=== PATIENT | male | born 2000 | race Caucasian/White ===

== ENCOUNTER 2022-05-08 11:30 | Emergency (ER) | payer BC, SELFPAY ==
[2022-05-08] MEDS ORDERED: NA CHLORIDE 0.9% 1,000 ML ONE (12:11)
[2022-05-08] MEDS ORDERED: ONDANSETRON 4 MG/2 ML VIAL ONE (12:12)
--- NOTE | 2022-05-08 12:19 | RAD REPORT ---
EXAM DESCRIPTION: CT - CTHCSPWOC - 05/08/2022 12:08 pm CLINICAL HISTORY: Trauma, head and neck injury. syncope, head injury, neck pain COMPARISON: No comparisons TECHNIQUE: Axial 5 mm thick images of the head were obtained. Axial 2 mm thick images of the cervical spine were obtained with sagittal and coronal reconstruction images generated and reviewed. All CT scans are performed using dose optimization technique as appropriate and may include automated exposure control or mA/KV adjustment according to patient size. FINDINGS: CT HEAD WITHOUT CONTRAST: No acute hemorrhage, hydrocephalus or extra-axial collection is identified.No areas of brain edema or midline shift. Jeremy cisterna magna. The paranasal sinuses and mastoids are clear.The calvarium is intact. CT CERVICAL SPINE WITHOUT CONTRAST: No fracture or subluxation.No prevertebral soft tissues swelling is identified. IMPRESSION: No acute intracranial or cervical spine findings.
[2022-05-08 12:37] LABS: Absolute Lymphocytes (CBC) 1.4 K/uL (0.7-4.9); Hematocrit 42.1 % (39.6-49.0); Lymphocytes % 15.5 % (15.3-44.8); MPV 7.1 fL (7.6-11.3); RBC Red Blood Cell Count 4.84 M/uL (4.33-5.43)
[2022-05-08 12:43] LABS: Protime INR 1.18
[2022-05-08 12:58] LABS: Albumin 3.9 g/dL (3.4-5.0); Bilirubin Direct 0.2 mg/dL (0-0.2); Magnesium 1.9 mg/dL (1.6-2.4); Potassium 3.4 mmol/L (3.5-5.1); Protein, Total 6.9 g/dL (6.4-8.2); Troponin High Sensitivity 3.6 pg/mL (<58.9)
[2022-05-08 13:17] LABS: SARS-COV-2 RT PCR NEGATIVE (NEGATIVE)
--- NOTE | 2022-05-08 13:39 | RAD REPORT ---
EXAM DESCRIPTION: RAD - Chest Single View - 05/08/2022 1:27 pm CLINICAL HISTORY: syncope Chest pain. COMPARISON: No comparisons FINDINGS: Portable technique limits examination quality. The lungs are grossly clear. The heart is normal in size. No displaced fractures. IMPRESSION: No acute intrathoracic process suspected.
[2022-05-08] MEDS ORDERED: IBUPROFEN 400 MG TAB ONE (13:48)
--- NOTE | 2022-05-08 14:51 | EDPHYS ---
Physician Documentation [facility] Name: Camila Lion Age: 21 yrs Sex: Male : 2000 Arrival Date: 05/08/2022 Time: 11:31 Bed 16 Private MD: ED Physician William Samayoa HPI: 05/08 11:33 This 21 yrs old Male presents to ER via Unassigned with complaints of syncope, head rn injury. 11:33 The patient has experienced syncope. Onset: The symptoms/episode began/occurred just rn prior to arrival. Duration: This was a single episode. Associated injury: Head/face:. Associated signs and symptoms: Pertinent positives: lightheadedness, Pertinent negatives: abdominal pain, chest pain, confusion, seizure, shortness of breath, vertigo, vomiting. Current symptoms: headache. The patient has not experienced similar symptoms in the past. The patient has not recently seen a physician. Pt at school, felt fine this AM, got up and felt lightheaded, went to door to get fresh air, passed out, witnessed, no seizure activity, + laceration to scalp, reports mild headache and neck pain. NO chest pain/sob/abd pain. First syncope. No famhx of early cardiac problems. No medication. No supplements. Did not eat breakfast this AM. Mother reports brother diagnosed with type 1 diabetes in teens.. Historical: - Allergies: 11:34 No Known Allergies; mb9 - Home Meds: 11:34 None [Active]; mb9 - PMHx: 11:34 None; mb9 - PSHx: 11:34 None; mb9 - Immunization history:: Adult Immunizations up to date. - Social history:: Smoking status: Patient denies any tobacco usage or history of. - Family history:: not pertinent. - Hospitalizations: : No recent hospitalization is reported. ROS: 11:33 Constitutional: Negative for fever, chills, and weight loss, Eyes: Negative for injury, rn pain, redness, and discharge, ENT: Negative for injury, pain, and discharge, Neck: + neck pain Cardiovascular: Negative for chest pain, palpitations, and edema, Respiratory: Negative for shortness of breath, cough, wheezing, and pleuritic chest pain, Abdomen/GI: Negative for abdominal pain, vomiting, diarrhea, and constipation, Back: Negative for injury and pain, MS/Extremity: Negative for injury and deformity, Skin: + laceration to scalp Neuro: Negative for numbness, tingling, and seizure. Exam: 11:33 Constitutional: This is a well developed, well nourished patient who is awake, alert, rn and in no acute distress. Head/Face: Normocephalic, small laceration occiput scalp, no active bleeding Eyes: Pupils equal round and reactive to light, extra-ocular motions intact. Lids and lashes normal. Conjunctiva and sclera are non-icteric and not injected. Cornea within normal limits. Periorbital areas with no swelling, redness, or edema. ENT: no oral trauma Neck: In ccollar, no midline tenderness, no crepitus Chest/axilla: Normal chest wall appearance and motion. Nontender with no deformity. No lesions are appreciated. Cardiovascular: Regular rate and rhythm. No pulse deficits. NO murmur. Respiratory: No increased work of breathing, no retractions or nasal flaring. Abdomen/GI: soft, non-tender Skin: Warm, dry MS/ Extremity: Pulses equal, no cyanosis. Neuro: Awake and alert, GCS 15, oriented to person, place, time, and situation. Cranial nerves II-XII grossly intact. Motor strength 5/5 in all extremities. Sensory grossly intact. Vital Signs: 11:31 BP 117 / 69; Pulse 98; Resp 18; Temp 97.3; Pulse Ox 97% on R/A; Weight 72.57 kg; Height mb9 6 ft. 1 in. (185.42 cm); Pain 4/10; 12:18 BP 123 / 82; Pulse 63; Resp 13; Pulse Ox 100% on R/A; Pain 3/10; mb9 12:58 BP 125 / 78; Pulse 62; Resp 14; Pulse Ox 100% on R/A; mb9 13:50 BP 127 / 71; Pulse 103; Resp 16; Pulse Ox 100% on R/A; mb9 15:16 BP 132 / 87; Pulse 88; Resp 18; Pulse Ox 100% ; mb9 11:31 Body Mass Index 21.11 (72.57 kg, 185.42 cm) mb9 Delmer Coma Score: 11:31 Eye Response: spontaneous(4). Verbal Response: oriented(5). Motor Response: obeys mb9 commands(6). Total: 15. 12:18 Eye Response: spontaneous(4). Verbal Response: oriented(5). Motor Response: obeys mb9 commands(6). Total: 15. 12:58 Eye Response: spontaneous(4). Verbal Response: oriented(5). Motor Response: obeys mb9 commands(6). Total: 15. 13:50 Eye Response: spontaneous(4). Verbal Response: oriented(5). Motor Response: obeys mb9 commands(6). Total: 15. 15:16 Eye Response: spontaneous(4). Verbal Response: oriented(5). Motor Response: obeys mb9 commands(6). Total: 15. Trauma Score (Adult): 11:31 Eye Response: spontaneous(1); Verbal Response: oriented(1); Motor Response: obeys mb9 commands(2); Systolic BP: > 89 mm Hg(4); Respiratory Rate: 10 to 29 per min(4); Delmer Score: 15; Trauma Score: 12 Laceration: 14:48 Wound Repair of 1cm ( 0.4in ) subcutaneous laceration to scalp. Distal rn neuro/vascular/tendon intact. Wound prep: Extensive cleansing by nurse, Wound explored. Skin closed with 1 35W Prolene using staple gun. Patient tolerated well. MDM: 11:31 Patient medically screened. rn 14:48 Differential Diagnosis: cardiac arrhythmia, emotional response, idiopathic syncope, rn vasovagal episode. Data reviewed: vital signs, nurses notes, lab test result(s), EKG, radiologic studies, CT scan, plain films, and as a result, I will discharge patient. Counseling: I had a detailed discussion with the patient and/or guardian regarding: the historical points, exam findings, and any diagnostic results supporting the discharge/admit diagnosis, lab results, radiology results, the need for outpatient follow up, to return to the emergency department if symptoms worsen or persist or if there are any questions or concerns that arise at home. Response to treatment: the patient's symptoms have markedly improved after treatment, the patient's condition has returned to base line, the patient is now symptom free, and as a result, I will discharge patient. Special discussion: Based on the patient's history, exam and DX evaluation, there is no indication for emergent intervention or inpatient TX. It is understood by the patient/guardian that if the SXs persist or worsen they need to return immediately for re-evaluation. I discussed with the patient/guardian in detail that at this point there is no indication for admission to the hospital. It is understood, however, that if the symptoms persist or worsen the patient needs to return immediately for re-evaluation. Based on the history and exam findings, there is no indication for further emergent testing or inpatient evaluation. I discussed with the patient/guardian the need to see the primary care provider for further evaluation of the symptoms. 05/08 11:32 Order name: Basic Metabolic Panel rn 05/08 11:32 Order name: CBC with Diff rn 05/08 11:32 Order name: Hepatic Function rn 05/08 11:32 Order name: Magnesium rn 05/08 11:32 Order name: Protime (+inr) rn 05/08 11:32 Order name: Ptt, Activated rn 05/08 11:32 Order name: Troponin High Sensitivity rn 05/08 11:32 Order name: COVID-19/FLU A+B rn 05/08 11:54 Order name: Glucose, Ancillary Testing; Complete Time: 12:22 EDWA 05/08 12:38 Order name: CBC with Automated Diff; Complete Time: 14:06 EDMS 05/08 12:43 Order name: Protime (+INR); Complete Time: 14:06 EDMS 05/08 12:43 Order name: PTT, Activated Partial Thromb; Complete Time: 14:06 EDMS 05/08 12:59 Order name: Basic Metabolic Panel; Complete Time: 14:06 EDMS 05/08 12:59 Order name: Liver (Hepatic) Function; Complete Time: 14:06 EDWA 05/08 11:32 Order name: CT Head C Spine rn 05/08 11:32 Order name: Chest Single View XRAY rn 05/08 11:32 Order name: EKG; Complete Time: 11:33 rn 05/08 11:32 Order name: Cardiac monitoring; Complete Time: 11:35 rn 05/08 11:32 Order name: EKG - Nurse/Tech; Complete Time: 12:15 rn 05/08 11:32 Order name: IV Saline Lock; Complete Time: 11:35 rn 05/08 11:32 Order name: Labs collected and sent; Complete Time: 11:35 rn 05/08 11:32 Order name: NPO; Complete Time: 11:35 rn 05/08 12:20 Order name: CT; Complete Time: 12:22 EDMS 05/08 12:59 Order name: Troponin High Sensitivity; Complete Time: 14:06 EDMS 05/08 12:59 Order name: Magnesium; Complete Time: 14:06 EDMS 05/08 13:17 Order name: COVID-19/FLU A+B; Complete Time: 14:06 EDMS 05/08 13:39 Order name: RAD; Complete Time: 14:06 EDMS 05/08 11:32 Order name: O2 Per Protocol; Complete Time: 11:35 rn 05/08 11:32 Order name: O2 Sat Monitoring; Complete Time: 11:35 rn 05/08 11:32 Order name: Glucose Level; Complete Time: 12:03 rn Administered Medications: 12:13 Drug: Zofran (Ondansetron) 4 mg Route: IVP; Site: left antecubital; mb9 13:31 Follow up: Response: No adverse reaction mb9 12:15 Drug: NS 0.9% 1000 ml Route: IV; Rate: 1000 ml; Site: left antecubital; mb9 13:49 Drug: Motrin (ibuprofen) 800 mg Route: PO; mb9 Disposition Summary: 05/08/22 14:50 Discharge Ordered Location: Home rn Problem: new rn Symptoms: have improved rn Condition: Stable rn Diagnosis - Syncope rn - Unspecified injury of head, initial encounter rn Followup: rn - With: Private Physician - When: 10 days - Reason: Recheck today's complaints, Staple/Suture removal, Re-evaluation by your physician Discharge Instructions: - Discharge Summary Sheet rn - Head Injury, Adult rn - Laceration Care, Adult rn Forms: - Medication Reconciliation Form rn - Thank You Letter rn - Antibiotic rn pool - Prescription Opioid Use rn - School release form [id number] Prescriptions: - Cephalexin 500 mg Oral Capsule - take 1 capsule by ORAL route every 12 hours for 10 days; 20 capsule; Refills: rn 0, Product Selection Permitted Signatures: Dispatcher [employer] William Salmeron MD MD rn Breneman, Mary Beth RN RN mb9 Corrections: (The following items were deleted from the chart) 14:07 11:33 Constitutional: This is a well developed, well nourished patient who is awake, rn alert, and in no acute distress. Head/Face: Normocephalic, small laceration occiput scalp, no active bleeding Eyes: Pupils equal round and reactive to light, extra-ocular motions intact. Lids and lashes normal. Conjunctiva and sclera are non-icteric and not injected. Cornea within normal limits. Periorbital areas with no swelling, redness, or edema. ENT: no oral trauma Neck: In ccollar, no midline tenderness, no crepitus Chest/axilla: Normal chest wall appearance and motion. Nontender with no deformity. No lesions are appreciated. Cardiovascular: Regular rate and rhythm. No pulse deficits. Respiratory: No increased work of breathing, no retractions or nasal flaring. Abdomen/GI: soft, non-tender Skin: Warm, dry MS/ Extremity: Pulses equal, no cyanosis. Neuro: Awake and alert, GCS 15, oriented to person, place, time, and situation. Cranial nerves II-XII grossly intact. Motor strength 5/5 in all extremities. Sensory grossly intact. rn
--- NOTE | 2022-05-08 14:51 | ER ---
Nurse's Notes [facility] Name: Camila Lion Age: 21 yrs Sex: Male : 2000 Arrival Date: 05/08/2022 Time: 11:31 Bed 16 Private MD: Diagnosis: Syncope;Unspecified injury of head, initial encounter Presentation: 05/08 11:31 Chief complaint: EMS states: "pt was at school and began getting hot flashes, he went mb9 to step outside to get air and has a syncope episode. Pt hit back of head on concrete and witnesses say he lost consciousness for 1 minute. Pt complaining of neck and head pain". Coronavirus screen: Vaccine status: Patient reports receiving the 2nd dose of the covid vaccine. Ebola Screen: No symptoms or risks identified at this time. Initial Sepsis Screen: Does the patient meet any 2 criteria? No. Patient's initial sepsis screen is negative. Does the patient have a suspected source of infection? No. Patient's initial sepsis screen is negative. Risk Assessment: Do you want to hurt yourself or someone else? Patient reports no desire to harm self or others. Onset of symptoms was May 08, 2022. 11:31 Acuity: GLENN 2 mb9 11:31 Method Of Arrival: EMS: [facility] mb9 Historical: - Allergies: 11:34 No Known Allergies; mb9 - Home Meds: 11:34 None [Active]; mb9 - PMHx: 11:34 None; mb9 - PSHx: 11:34 None; mb9 - Immunization history:: Adult Immunizations up to date. - Social history:: Smoking status: Patient denies any tobacco usage or history of. - Family history:: not pertinent. - Hospitalizations: : No recent hospitalization is reported. Screenin:[facility] ED Fall Risk Assessment (Adult) History of falling in the last 3 months, mb9 including since admission Yes- physiologic fall (2 pts) Confusion or Disorientation No (0 pts) Intoxicated or Sedated No (0 pts) Impaired Gait No (0 pts) Mobility Assist Device Used No (0 pt) Altered Elimination No (0 pt) Score/Fall Risk Level 0 - 2 = Low Risk Oriented to surroundings, Maintained a safe environment, Educated pt \\T\\ family on fall prevention, incl call for assistance when getting out of bed. Abuse screen: Denies threats or abuse. Nutritional screening: No deficits noted. Tuberculosis screening: No symptoms or risk factors identified. Primary Survey: 11:31 NO uncontrolled hemorrhage observed. A: The client is awake and alert. The airway is mb9 patent. The client is alert. Airway: patent, Trachea midline. 11:31 Breathing/Chest: Spontaneous respiratory effort, equal unlabored respirations, breath mb9 sounds clear bilaterally, regular pattern, symmetrical chest rise and fall. Respiratory effort: unlabored, Breath sounds: clear, bilaterally. Respiratory pattern: regular, Chest inspection: symmetrical rise and fall of the chest. Circulation: No external hemorrhage present. Regular and strong central pulse, skin warm/dry/normal color. Pulses: palpable right radial artery, right posterior tibial artery, right dorsalis pedis artery, left radial artery, left posterior tibial artery and left dorsalis pedis artery. Skin color: pale, Skin temperature: cool, Cardiac rhythm: sinus rhythm Heart tones present. Disability Pupils are equal, round, reactive to light and accommodation. Client is alert. Exposure/Environment: All clothing and personal items were removed. There is no evidence of uncontrolled external bleeding. Obvious injury(ies) are noted at this time: Laceration to posterior head. 12:17 Reassessment Alertness and Airway: Awake and alert. The airway is patent. Airway Patent mb9 Trachea Midline Breathing: Spontaneous respiratory effort, equal unlabored respirations, breath sounds clear bilaterally, regular pattern with symmetrical chest rise and fall. Respiratory effort Spontaneous Unlabored Breath sounds Clear Respiratory pattern Regular Circulation: No external hemorrhage noted. Regular and strong central pulse, skin warm/dry/normal color. Heart rhythm Sinus rhythm Heart tones Present Pulses Palpable Color Pale Temperature Cool Disability: Pupils Pupils are equal, round, reactive to light and accomodation. Alert. Secondary Survey: 11:31 HEENT:. Gastrointestinal: Abdomen is soft, flat, Bowel sounds present in all quadrants. mb9 Palpation Patient reports nausea. : No signs and/or symptoms were reported regarding the genitourinary system. Musculoskeletal: Range of motion: intact in all extremities. Injury Description: Laceration sustained to posterior right scalp is clean, 0.5 to 2.5 cm long, not bleeding. Assessment: 11:31 Reassessment: C-Collar and backboard in place via EMS. mb9 11:45 Reassessment: pt taken to CT via stretcher. mb9 12:10 Reassessment: pt vomiting in CT. VO from Dr. Samayoa for 4mg Zofran. mb9 12:45 Reassessment: No changes from previously documented assessment. Patient and/or family mb9 updated on plan of care and expected duration. Pain level reassessed. General: Appears uncomfortable, Behavior is calm, cooperative. Pain: Complains of pain in head Pain currently is 6 out of 10 on a pain scale. Quality of pain is described as aching, throbbing. Neuro: Cortez Agitation-Sedation Scale (RASS): 0 - Alert and Calm Level of Consciousness is awake, alert, obeys commands, Oriented to person, place, time, situation, Appropriate for age. EENT: No signs and/or symptoms were reported regarding the EENT system. Cardiovascular: Rhythm is regular. Respiratory: Airway is patent Respiratory effort is even, unlabored, Respiratory pattern is regular, symmetrical. GI: Patient currently denies nausea. : No signs and/or symptoms were reported regarding the genitourinary system. Derm: Skin is pale, Skin temperature is cool. 13:30 Reassessment: No changes from previously documented assessment. Patient and/or family mb9 updated on plan of care and expected duration. Pain level reassessed. Patient is alert, oriented x 3, equal unlabored respirations, skin warm/dry/pink. 13:43 Reassessment: pt states his head is hurting. 8/10 that is a throbbing pain. Dr. Samayoa mb9 notified. New orders at this time. 14:40 Reassessment: No changes from previously documented assessment. Patient and/or family mb9 updated on plan of care and expected duration. Pain level reassessed. Patient is alert, oriented x 3, equal unlabored respirations, skin warm/dry/pink. Vital Signs: 11:31 BP 117 / 69; Pulse 98; Resp 18; Temp 97.3; Pulse Ox 97% on R/A; Weight 72.57 kg; Height mb9 6 ft. 1 in. (185.42 cm); Pain 4/10; 12:18 BP 123 / 82; Pulse 63; Resp 13; Pulse Ox 100% on R/A; Pain 3/10; mb9 12:58 BP 125 / 78; Pulse 62; Resp 14; Pulse Ox 100% on R/A; mb9 13:50 BP 127 / 71; Pulse 103; Resp 16; Pulse Ox 100% on R/A; mb9 15:16 BP 132 / 87; Pulse 88; Resp 18; Pulse Ox 100% ; mb9 11:31 Body Mass Index 21.11 (72.57 kg, 185.42 cm) mb9 [place] Coma Score: 11:31 Eye Response: spontaneous(4). Verbal Response: oriented(5). Motor Response: obeys mb9 commands(6). Total: 15. 12:18 Eye Response: spontaneous(4). Verbal Response: oriented(5). Motor Response: obeys mb9 commands(6). Total: 15. 12:58 Eye Response: spontaneous(4). Verbal Response: oriented(5). Motor Response: obeys mb9 commands(6). Total: 15. 13:50 Eye Response: spontaneous(4). Verbal Response: oriented(5). Motor Response: obeys mb9 commands(6). Total: 15. 15:16 Eye Response: spontaneous(4). Verbal Response: oriented(5). Motor Response: obeys mb9 commands(6). Total: 15. Trauma Score (Adult): 11:31 Eye Response: spontaneous(1); Verbal Response: oriented(1); Motor Response: obeys mb9 commands(2); Systolic BP: > 89 mm Hg(4); Respiratory Rate: 10 to 29 per min(4); Delmer Score: 15; Trauma Score: 12 ED Course: 11:31 Patient arrived in ED. rn 11:31 William Samayoa MD is Attending Physician. rn 11:31 Keren Malcolm, MITCH is Primary Nurse. mb9 11:34 Triage completed. mb9 11:34 Arm band placed on. mb9 11:35 Patient has correct armband on for positive identification. Placed in gown. Bed in low mb9 position. Call light in reach. Side rails up X 1. 11:35 Maintain EMS IV. Dressing intact. Good blood return noted. Site clean \\T\\ dry. Gauge \\T\\ mb 9 site: 18 gauge to left AC. 12:59 No provider procedures requiring assistance completed. mb9 13:31 COVID-19/FLU A+B Sent. mb9 15:18 IV discontinued, intact, bleeding controlled, No redness/swelling at site. Pressure mb9 dressing applied. Administered Medications: 12:13 Drug: Zofran (Ondansetron) 4 mg Route: IVP; Site: left antecubital; mb9 13:31 Follow up: Response: No adverse reaction mb9 12:15 Drug: NS 0.9% 1000 ml Route: IV; Rate: 1000 ml; Site: left antecubital; mb9 13:49 Drug: Motrin (ibuprofen) 800 mg Route: PO; mb9 Medication: 12:59 VIS not applicable for this client. mb9 Outcome: 14:50 Discharge ordered by . rn 15:18 Discharged to home via wheelchair. mb9 15:18 Condition: stable 15:18 Discharge instructions given to patient, Instructed on discharge instructions, follow up and referral plans. Demonstrated understanding of instructions, follow-up care, medications, Prescriptions given X 1. 15:19 Patient left the ED. mb9 Signatures: William Samayoa MD MD rn Breneman, Mary Beth, RN RN mb9 Corrections: (The following items were deleted from the chart) 12:18 11:31 Injury Description: Laceration sustained to posterior scalp is 0.5 to 2.5 cm mb9 long, not bleeding, mb9 12:31 11:31 Injury Description: Laceration sustained to posterior scalp mb9 mb9 12:31 12:30 Injury Description: Laceration mb9 mb9
[2022-05-08 15:27] VITALS: TEMP 97.3
[2022-05-08 15:28] VITALS: O2SAT 100
[2022-05-08 15:32] VITALS: BP 132/87
--- NOTE | 2022-05-09 13:01 | EKG ---
Test Date: 2022-05-08 Test Time: 12:13:47 Business Operations Coordinator: FELICIA MEASUREMENT RESULTS: Intervals: Rate: 65 WA: 144 QRSD: 100 QT: 400 QTc: 416 [place]: P: 5 WA: 144 QRS: 74 T: 56 INTERPRETIVE STATEMENTS: Normal sinus rhythm with sinus arrhythmia Normal ECG Compared to ECG 10/14/2018 15:59:50 No significant changes Electronically Signed On 05-09-22 12:59:04 CAUL PULLER by Sergey Navarro
== END 2022-05-08 15:19 | disposition home or self-care (01) ==
LOC: ER 11:30
PROC: 0HQ0XZZ Repair Scalp Skin, External Approach (ICD-10-PCS; principal; 2022-05-08)
DX: S01.01XA Laceration without foreign body of scalp, initial encounter (principal); R55 Syncope and collapse
CPT/HCPCS: 0240U; 36415; 70450; 71045; 72125; 80048; 80076; 82947; 83735; 84484; 85025; 85610; 85730; 93005; J2405; J7030

== ENCOUNTER 2022-05-20 10:36 | Emergency (ER) | payer SELFPAY ==
--- NOTE | 2022-05-20 10:53 | EDPHYS ---
Physician Documentation [facility] Name: Camila Lion Age: 21 yrs Sex: Male : 2000 Arrival Date: 05/20/2022 Time: 10:38 Bed DX3 Private MD: ED Physician William Samayoa HPI: 05/20 11:21 This 21 yrs old Male presents to ER via Unassigned with complaints of Suture Removal. kb 11:21 The patient has dhaval on the scalp. Previous treatment: The patient was initially kb treated on May 08, 2022, the care was rendered at [facility]. Sutures/dhaval progress: The patient has no c/o's. The wound is well-healing with no redness, swelling, discharge, or dehiscence reported. The patient has not experienced similar symptoms in the past. The patient has not recently seen a physician. ROS: 11:20 Constitutional: Negative for fever, chills, and weight loss. kb 11:20 Skin: Positive for of the scalp, staple in place. 11:20 All other systems are negative. Exam: 11:20 Constitutional: This is a well developed, well nourished patient who is awake, alert, kb and in no acute distress. Head/Face: Normocephalic, atraumatic. ENT: Moist Mucous membranes Cardiovascular: Regular rate and rhythm with a normal S1 and S2. No gallops, murmurs, or rubs. No pulse deficits. Respiratory: Respirations even and unlabored. No increased work of breathing. Talking in full sentences MS/ Extremity: Pulses equal, no cyanosis. Neurovascular intact. Full, normal range of motion. Neuro: Awake and alert, GCS 15, oriented to person, place, time, and situation. Moves all extremities. Normal gait. 11:20 Skin: Wound recheck: Staple laceration closure: the wound is healing well, the edges are well approximated, no evidence of dehiscence, no drainage, no erythema, no swelling. Procedures: 11:20 Suture/Staple removal: Removed 1 dhaval, from scalp, site appears well healed, Patient kb tolerated well. MDM: 10:40 Patient medically screened. kb 11:18 Data reviewed: vital signs, nurses notes. kb 11:19 Counseling: I had a detailed discussion with the patient and/or guardian regarding: the kb historical points, exam findings, and any diagnostic results supporting the discharge/admit diagnosis, the need for outpatient follow up, a family practitioner, to return to the emergency department if symptoms worsen or persist or if there are any questions or concerns that arise at home. ED course: Patient is a 21-year-old male who presents to have staple removed from back of scalp. Staple was placed on May 08. Patient reports he has had no problems with staple or laceration. On exam wound is well-healed with staple intact. I removed staple. Patient tolerated well.. Administered Medications: No medications were administered Disposition: 11:54 Co-signature as Attending Physician, William Samayoa MD I reviewed the patient's care rn provided by the Advanced Practice Provider and agree with the diagnosis and treatment plan. Disposition Summary: 05/20/22 10:52 Discharge Ordered Location: Home Condition: Stable kb Diagnosis - Encounter for removal of sutures - staple kb Followup: kb - With: Emergency Department - When: As needed - Reason: Worsening of condition Followup: kb - With: Private Physician - When: 2 - 3 days - Reason: Recheck today's complaints, Continuance of care, Re-evaluation by your physician Forms: - Medication Reconciliation Form kb - Thank You Letter kb - Antibiotic Education kb - Prescription Opioid Use kb Signatures: Christina Estrella FNP-C FNP-William Boone MD MD rn
== END 2022-05-20 10:53 | disposition home or self-care (01) ==
LOC: ER 10:36
DX: Z48.02 Encounter for removal of sutures (principal)